=== PATIENT | female | born 1950 | race Caucasian/White ===

== ENCOUNTER 2019-12-28 09:01 | Outpatient (CLI) | payer MEDICARE ==
--- NOTE | 2019-12-28 09:58 | ULT ---
Exam: Hepatic Doppler HISTORY: Abnormal liver function test COMPARISON: None TECHNIQUE: Grayscale, color flow, Doppler imaging and spectral waveform analysis the liver is perform ed FINDINGS: Heterogeneity of the hepatic parenchyma may be due to hepatic steatosis or hepatocellular disease. Chery bsequent limited evaluation for hepatic masses and intrahepatic biliary dilatation. Right hepatic lobe measures 16.9 cm. No sonographic evidence of cholelithiasis, gallbladder wall thickening or pericholecystic fluid. Negative Ulloa's sign Spleen has a normal echotexture measuring 8.6 cm in maximum dimension Visualized pancreatic head is a normal echotexture. The remainder the pancreas is obscured by bowel g as Visualized IVC and aorta are unremarkable Hepatic Doppler: There is patency and appropriate directional flow of the main portal vein, right por domo vein, left portal vein, right hepatic vein, left hepatic vein, middle hepatic vein, hepatic artery and splenic vein and artery. IMPRESSION: 1. Normal hepatic Doppler 2. Heterogeneous echotexture of liver which may be due to hepatic steatosis or hepatocellular disease . There is concern for hepatic masses, consider abdomen MRI
== END 2019-12-28 09:02 | disposition home or self-care (01) ==
LOC: SCSULT 09:01
PROVIDERS: ATTEND Internal Medicine Gastroenterology
DX: R74.8 Abnormal levels of other serum enzymes (principal); R93.2 Abnormal findings on diagnostic imaging of liver and biliary tract
CPT/HCPCS: 36415; 76705; 80074

== ENCOUNTER 2020-01-21 10:14 | Outpatient (CLI) | payer MEDICARE ==
--- NOTE | 2020-01-21 12:44 | CT ---
CT OF THE ABDOMEN AND PELVIS WITH IV CONTRAST INDICATION: 69-year-old female with abdominal pain and diarrhea COMPARISON: Hepatic Doppler evaluation dated December 28, 2019 FINDINGS: ABDOMEN: Lung bases: Mild subsegmental atelectasis within the left lower lobe. Liver: Fatty infiltration of the liver. There is a 3 mm hypodensity within segment 5 of the right hep atic lobe on image 25 of series 2. There is an additional 5 mm hypodensity within segment 6 of the right hepatic lobe on image 23 of series 2. Gallbladder: There is layered density within the gallbladder neck Pancreas: Normal. Adrenal glands: Normal. Spleen: The spleen measures 10.2 cm in length. Kidneys and ureters: There are bilateral renal cysts. The largest cyst within the right mid kidney me asures 4 cm. The largest cyst within the superior pole left kidney measures 3 cm. There is a 3 mm calculus within the inferior pole of the left kidney. Vasculature: There are mild vascular calcifications seen involving the visualized vasculature. Lymph nodes:No lymphadenopathy. Free fluid in abdomen:No free fluid is evident. PELVIS: Small and large bowel: Normal Appendix:Normal Bladder: Partially decompressed Rectal and perirectal soft tissues:Normal. Reproductive structures: Surgically absent Free fluid in pelvis: No free fluid is evident. Lymphadenopathy pelvis: No lymphadenopathy is evident. Osseous structures: No acute osseous abnormality. No destructive osteolytic or osteoblastic lesion i s identified. There is scattered degenerative and osteoarthritic changes. Soft tissues:Normal. IMPRESSION: 1. Mild fatty liver. Hypodensities within the right hepatic lobe, difficult characterize due to their size. Follow-up CT the abdomen utilizing a hepatic mass protocol in one year may be helpful to document stability. 2. Cholelithiasis 3. Bilateral renal cysts and left nephrolithiasis
== END 2020-01-21 10:15 | disposition home or self-care (01) ==
LOC: SCSCT 10:14
PROVIDERS: ATTEND Internal Medicine Gastroenterology
DX: R10.9 Unspecified abdominal pain (principal); R19.7 Diarrhea, unspecified; R93.2 Abnormal findings on diagnostic imaging of liver and biliary tract; R74.8 Abnormal levels of other serum enzymes; N28.1 Cyst of kidney, acquired; N20.0 Calculus of kidney; K80.20 Calculus of gallbladder without cholecystitis without obstruction; K76.0 Fatty (change of) liver, not elsewhere classified
CPT/HCPCS: 74177; 82565